=== PATIENT | female | born 1975 | race Caucasian/White ===

== ENCOUNTER 2017-04-12 09:06 | Inpatient (IN) | payer MEDICAID, OTHER ==
[2017-04-12] MEDS ORDERED: NS 1,000 ML IV ONE ×3 (09:54→20:39)
--- NOTE | 2017-04-12 09:58 | EDPHY ---
H & P Time Seen by Provider: 04/12/17 09:27 HPI/ROS: Chief complaint. Vomiting HPI. 41-year-old female insulin-dependent diabetic with nausea vomiting and burning epigastric pain for 4 days. She has had similar symptoms previously and has had previous admission for DKA. She has some periumbilical tenderness. No bowel movement for 4 days. No significant abdominal history though sensitive stomach. Blood sugar was 450 today. No chest discomfort or trouble breathing. No urinary symptoms other than decreased urination. No fever ROS Constitutional. Generalized weakness Eyes. no problems with vision ENT. no sore throat, no nasal drainage Cardiovascular. no chest pain Respiratory. no shortness of breath, no cough Abdominal. Abdominal pain with vomiting. No diarrhea. No bowel movement for 4 days . Decreased urination MS. no calf pain/swelling, no neck/back pain, no joint pain Skin. no rash Lymph. no swollen glands Neuro. no headache, no dizziness, no difficulty walking or with speech Past Medical/Surgical History: Insulin-dependent diabetes Social History: Single, nonsmoker, no alcohol Smoking Status: Current every day smoker Physical Exam: General Appearance: Alert well-developed female moderate distress vital signs significant for heart rate of approximately 135 Eyes: Pupils equal and round no pallor or injection. ENT, mucous membranes are dry Respiratory: There are no retractions, lungs are clear to auscultation. Cardiovascular: Regular rate and rhythm. Gastrointestinal: Abdomen is soft but diffusely tender. No masses. Normal bowel sounds Neurological: Awake and alert, sensory and motor exams grossly normal. Skin: Warm and dry, no rashes. Musculoskeletal: Neck is supple nontender. Extremities symmetrical, full range of motion. Psychiatric: Patient is oriented X 3, there is no agitation. Constitutional: Initial Vital Signs Temperature (C) 36.5 C 04/12/17 09:07 Heart Rate 132 H 04/12/17 09:07 Respiratory Rate 16 04/12/17 09:07 Blood Pressure 115/91 H 04/12/17 09:07 O2 Sat (%) 99 04/12/17 09:07 O2 Delivery Mode Room Air Allergies/Adverse Reactions: Penicillins Allergy (Intermediate, Verified 11/13/15 10:10) rashes/hives amoxicillin [Amoxicillin] Allergy (Unknown, Verified 01/12/11 23:00) Home Medications: Medication Instructions Recorded Insulin Lispro [Humalog] 0 unit SQ TIDMEAL 04/12/17 Medical Decision Making - Diagnostics EKG Interpretation: EKG interpreted by me shows sinus tachycardia with normal interval and axis. QRS is normal without significant ST elevation or depression. No arrhythmia. The heart rate is 104 Procedures: IV normal saline 2 L. We switched to IV saline with potassium. Potassium orally. 1 g magnesium sulfate IV. Zofran for vomiting. ED Course/Re-evaluation: 1:46 p.m. patient is stable. Repeat potassium shows a up to 2.9. We will give the patient further potassium so we can begin insulin therapy. We are trying to achieve a potassium level of greater than 3.0 Serial evaluations with the hydration patient is feeling better. I have consulted and discussed the case with Dr. Rasmussen, hospitalist, who agrees to the admission Differential Diagnosis: This appears to be DKA. The patient is significantly dehydrated. She has dry mucous membranes and tachycardia. She initially has a blood sugar only of about 280 but on recheck it is up around 450. She is acidotic. However her potassium is significantly low and does not allow us to initiate insulin therapy until we have elevated her potassium. She has been given supplemental potassium by mouth, IV as well as IV magnesium sulfate to try to increase potassium. The patient will be transferred to the ICU Critical Care Time: Critical care time exclusive procedures 45 minutes - Data Points Laboratory Results: Laboratory Results 04/12/17 09:32 04/12/17 09:32 04/12/17 04/12/17 04/12/17 11:20 11:15 10:57 WBC RBC Hgb POC Hgb 16.3 gm/dL gm/dL (12.6-16.3) Hct POC Hct 48 % H % (38-47) MCV MCH MCHC RDW Plt Count MPV Neut % (Auto) Lymph % (Auto) Sierra % (Auto) Eos % (Auto) Baso % (Auto) Nucleat RBC Rel Count Absolute Neuts (auto) Absolute Lymphs (auto) Absolute Monos (auto) Absolute Eos (auto) Absolute Basos (auto) Absolute Nucleated RBC Immature Gran % Immature Gran # VBG pH 7.23 L (7.31-7.42) POC Sodium 130 mEq/L L mEq/L (134-144) Sodium POC Potassium 2.4 mEq/L L* mEq/L (3.3-5.0) Potassium POC Chloride 94 mEq/L L mEq/L (97-110) Chloride Carbon Dioxide Anion Gap POC BUN 13 mg/dL mg/dL (7-23) BUN Creatinine POC Creatinine 0.8 mg/dL mg/dL (0.6-1.0) Estimated GFR Glucose POC Glucose 295 mg/dL H mg/dL (70-100) Calcium Phosphorus Lipase Beta-Hydroxybutyrate Beta HCG, Qual Urine Color PALE YELLOW Urine Appearance CLEAR Urine pH 5.0 (5.0-7.5) Ur Specific [place] 1.008 (1.002-1.030) Urine Protein 1+ H (NEGATIVE) Urine Ketones 2+ H (NEGATIVE) Urine Blood 3+ H (NEGATIVE) Urine Nitrate NEGATIVE (NEGATIVE) Urine Bilirubin NEGATIVE (NEGATIVE) Urine Urobilinogen NEGATIVE EU EU (0.2-1.0) Ur Leukocyte Esterase NEGATIVE (NEGATIVE) Urine RBC 1-3 /hpf /hpf (0-3) Urine WBC 1-3 /hpf /hpf (0-3) Ur Epithelial Cells TRACE /lpf /lpf (NONE-1+) Urine Bacteria TRACE /hpf H /hpf (NONE SEEN) Granular Casts 5-15 /lpf /lpf (0-1) Urine Mucus TRACE /lpf /lpf (NONE-1+) Urine Glucose 3+ H (NEGATIVE) 04/12/17 04/12/17 04/12/17 09:32 09:32 09:32 WBC 20.36 10^3/uL H 10^3/uL (3.80-9.50) RBC 5.34 10^6/uL H 10^6/uL (4.18-5.33) Hgb 16.7 g/dL H g/dL (12.6-16.3) POC Hgb Hct 46.2 % % (38.0-47.0) POC Hct MCV 86.5 fL fL (81.5-99.8) MCH 31.3 pg pg (27.9-34.1) MCHC 36.1 g/dL g/dL (32.4-36.7) RDW 12.2 % % (11.5-15.2) Plt Count 452 10^3/uL H 10^3/uL (150-400) MPV 9.5 fL fL (8.7-11.7) Neut % (Auto) 86.8 % H % (39.3-74.2) Lymph % (Auto) 4.7 % L % (15.0-45.0) Sierra % (Auto) 7.7 % % (4.5-13.0) Eos % (Auto) 0.0 % L % (0.6-7.6) Baso % (Auto) 0.2 % L % (0.3-1.7) Nucleat RBC Rel Count 0.0 % % (0.0-0.2) Absolute Neuts (auto) 17.67 10^3/uL H 10^3/uL (1.70-6.50) Absolute Lymphs (auto) 0.95 10^3/uL L 10^3/uL (1.00-3.00) Absolute Monos (auto) 1.57 10^3/uL H 10^3/uL (0.30-0.80) Absolute Eos (auto) 0.00 10^3/uL L 10^3/uL (0.03-0.40) Absolute Basos (auto) 0.04 10^3/uL 10^3/uL (0.02-0.10) Absolute Nucleated RBC 0.00 10^3/uL 10^3/uL (0-0.01) Immature Gran % 0.6 % % (0.0-1.1) Immature Gran # 0.13 10^3/uL H 10^3/uL (0.00-0.10) VBG pH POC Sodium Sodium 127 mEq/L L mEq/L (134-144) POC Potassium Potassium 2.6 mEq/L L* mEq/L (3.5-5.2) POC Chloride Chloride 86 mEq/L L mEq/L (97-110) Carbon Dioxide 13 mEq/l L mEq/l (22-31) Anion Gap 28 mEq/L H mEq/L (8-16) POC BUN BUN 15 mg/dL mg/dL (7-23) Creatinine 1.1 mg/dL H mg/dL (0.6-1.0) POC Creatinine Estimated GFR 55 Glucose 284 mg/dL H mg/dL (70-100) POC Glucose Calcium 10.7 mg/dL H mg/dL (8.5-10.4) Phosphorus 2.9 mg/dL mg/dL (2.5-4.5) Lipase 53.0 IU/L IU/L (23-300) Beta-Hydroxybutyrate 8.68 mmol/L H mmol/L (0.02-0.27) Beta HCG, Qual NEGATIVE Urine Color Urine Appearance Urine pH Ur Specific [place] Urine Protein Urine Ketones Urine Blood Urine Nitrate Urine Bilirubin Urine Urobilinogen Ur Leukocyte Esterase Urine RBC Urine WBC Ur Epithelial Cells Urine Bacteria Granular Casts Urine Mucus Urine Glucose Medications Given: Discontinued Medications Sodium Chloride (Ns) 1,000 mls @ 0 mls/hr IV ONCE ONE PRN Reason: Wide Open Stop: 04/12/17 09:55 Last Admin: 04/12/17 09:58 Dose: 1,000 mls Sodium Chloride (Ns) 1,000 mls @ 0 mls/hr IV ONCE ONE PRN Reason: Wide Open Stop: 04/12/17 09:55 Last Admin: 04/12/17 10:28 Dose: 1,000 mls Magnesium Sulfate/Dextrose (Magnesium Sulf 1 Gm (Premix)) 100 mls @ 100 mls/hr IV EDNOW ONE Stop: 04/12/17 12:15 Last Admin: 04/12/17 11:29 Dose: 100 mls Ondansetron HCl (Zofran) 4 mg IVP EDNOW ONE Stop: 04/12/17 10:28 Last Admin: 04/12/17 10:33 Dose: 4 mg Potassium Chloride (Klor-Con) 40 meq PO ONCE ONE Stop: 04/12/17 11:17 Last Admin: 04/12/17 11:22 Dose: 40 meq Point of Care Test Results: 04/12/17 11:15 POC Sodium 130 L POC Potassium 2.4 L* POC Chloride 94 L POC BUN 13 POC Creatinine 0.8 POC Glucose 295 H Departure - Departure Disposition: [facility] Inpatient Acute Clinical Impression: Diabetic ketoacidosis Qualifiers: Diabetes mellitus type: type 1 Diabetes mellitus complication detail: without coma Qualified Code(s): E10.10 - Type 1 diabetes mellitus with ketoacidosis without coma Condition: Critical
[2017-04-12 10:02] LABS: % IMMATURE GRANULYOCYTES 0.6 % (0.0-1.1); ABSOLUTE IMMATURE GRANULOCYTES 0.13 10^3/uL (0.00-0.10); ADD DIFF? NO; ADD MORPH? NO; ADD SCAN? NO; ATYPICAL LYMPHOCYTE FLAG 0 (0-99); FRAGMENT RBC FLAG 0 (0-99); HEMATOCRIT 46.2 % (38.0-47.0); HEMOGLOBIN 16.7 g/dL (12.6-16.3); LEFT SHIFT FLG 0 (0-99); LIPEMIA HEMOLYSIS FLAG 90 (0-99); MEAN CELL HEMOGLOBIN 31.3 pg (27.9-34.1); MEAN CELL HEMOGLOBIN CONCENTR. 36.1 g/dL (32.4-36.7); MEAN CELL VOLUME 86.5 fL (81.5-99.8); MEAN PLATELET VOLUME 9.5 fL (8.7-11.7); PLATELET CLUMPS FLAG 0 (0-99); PLATELET COUNT 452 10^3/uL (150-400); RED BLOOD CELL COUNT 5.34 10^6/uL (4.18-5.33); RED CELL DISTRIBUTION WIDTH 12.2 % (11.5-15.2)
[2017-04-12] MEDS ORDERED: ONDANSETRON 4 MG/2 ML VIAL IVP ONE (10:27)
[2017-04-12 10:29] LABS: ANION GAP 28 mEq/L (8-16); CALCIUM 10.7 mg/dL (8.5-10.4); CARBON DIOXIDE 13 mEq/l (22-31); CHLORIDE 86 mEq/L (97-110); CREATININE 1.1 mg/dL (0.6-1.0); GLOMERULAR FILTRATION RATE 55; GLUCOSE 284 mg/dL (70-100); SODIUM 127 mEq/L (134-144)
[2017-04-12 10:40] LABS: POTASSIUM 2.6 mEq/L (3.5-5.2)
[2017-04-12 11:08] LABS: LEUKOCYTE ESTERASE,URINE NEGATIVE (NEGATIVE); NITRITE,URINE NEGATIVE (NEGATIVE)
[2017-04-12] MEDS ORDERED: MAGNESIUM SULF 1 GM/DEXTROSE 100 ML IV ONE (11:16)
[2017-04-12] MEDS ORDERED: POTASSIUM CL 20 MEQ TAB PO ONE (11:16)
[2017-04-12 11:25] LABS: BACTERIA TRACE /hpf (NONE SEEN); MUCUS TRACE /lpf (NONE-1+)
[2017-04-12] MEDS ORDERED: POTASSIUM Cl (KCl) 20 MEQ in 1/2 NS 1,000 ML IV SCH (11:30)
[2017-04-12 11:33] LABS: COLOR PALE YELLOW
[2017-04-12 11:48] LABS: B-HYDROXYBUTYRATE 8.68 mmol/L (0.02-0.27)
--- NOTE | 2017-04-12 11:57 | CPEKG ---
Heart Rate: 104 RR Interval: 577 P-R Interval: 132 QRSD Interval: 84 QT Interval: 356 QTC Interval: 469 P Hastings: 80 QRS Hastings: 89 T Wave Hastings: -78 EKG Severity - OTHERWISE NORMAL ECG - EKG Impression: SINUS TACHYCARDIA Electronically Signed By: Heath Loyola 12-Apr-2017 15:50:30
[2017-04-12] MEDS ORDERED: PROTOCOL POTASSIUM 1 DOSE MISC PRN (13:02)
[2017-04-12] MEDS ORDERED: ONDANSETRON 4 MG/2 ML VIAL IVP PRN (13:03)
[2017-04-12] MEDS ORDERED: ONDANSETRON DISINTEGRATING 4 MG TAB PO PRN (13:03)
[2017-04-12] MEDS ORDERED: PROMETHAZINE HCL 25 MG/ML INJ IVP PRN (13:15)
[2017-04-12] MEDS ORDERED: PROTOCOL MAGNESIUM 1 DOSE IV PRN (13:19)
[2017-04-12] MEDS ORDERED: NS 1,000 ML IV SCH (13:45)
[2017-04-12] MEDS ORDERED: POTASSIUM Cl (KCl) 10 MEQ/100 ML BAG IV ONE (14:03)
[2017-04-12] MEDS: POTASSIUM Cl (KCl) 100 ML IV SCH ×6 (14:15→23:15)
[2017-04-12] MEDS ORDERED: ONDANSETRON 4 MG/2 ML VIAL ONE (14:19)
--- NOTE | 2017-04-12 14:25 | GHP ---
[f rep st] HISTORY AND PHYSICAL DATE OF ADMISSION: 04/12/2017 HISTORY OF PRESENT ILLNESS: The patient is a pleasant 41-year-old female with a history of type 1 d iabetes for about 13 years who has had a few admissions to this hospital for diabetic ketoacidosis, who presents with several days of nausea and vomiting. It sounds like a few days prior to admission she went out drinking alcohol and she was vomiting and continued to vomit. She has not had diarrh ea. She has not had hematemesis or coffee-ground emesis. She has had some subjective fevers and chills. She has not taken insulin this week I think secondar y to poor p.o. intake and perhaps because of a bit of knowledge deficit regarding the role of long-a cting insulin. It sounds like in the past she was not taking the long-acting insulin as well. She acknowledged not do this, that she does this mostly out of laziness. She has not had chest pain or shortness of breath. She is complaining of burning in her chest from frequent vomiting that leads to nausea and further vomiting. REVIEW OF SYSTEMS: A complete 10-point review of systems was conducted and negative except as noted in the history of present illness. PAST MEDICAL HISTORY: Type 1 diabetes since she was age 28. ALLERGIES: Penicillin and amoxicillin. HOME MEDICATIONS: Humalog insulin. SOCIAL HISTORY: She works in dry cleaning. She smokes a few cigarettes a day. Occasional alcohol. No drugs with a needle. FAMILY HISTORY: Notable for diabetes. PHYSICAL EXAMINATION: VITAL SIGNS: Presenting vitals today: Temperature 36.5, blood pressure 115/ 91, pulse 132, breathing 16 times a minute, 99% on room air. GENERAL: No acute distress although k ind of uncomfortable, retching a couple of times during our interview. HEENT: Sclerae anicteric. Oropharynx clear. Mucous membranes are dry. NECK: Supple without lymphadenopathy or JVD. LUNGS: Clear to auscultation bilaterally. HEART: Tachycardic, hyperdynamic. S1-S2 without murmurs. ABD OMEN: Soft, nontender, nondistended. LOWER EXTREMITIES: Without edema. Calves nontender. SKIN: Without rash. NEUROLOGIC: Nonfocal. LABORATORY: Sodium 127, potassium 2.6, chloride 86, bicarb 13, anion gap is elevated at 28, BUN 15, creatinine 1.1, glucose 284, calcium 10.7, lipase 53. Beta hydroxybutyrate is 8.68, beta HCG is ne gative. White count is 20.36, hematocrit 46, platelets 452,000. Her coags about 18 months ago were normal. She has a venous pH of 7.23. UA today shows trace bacteria, otherwise unremarkable. EKG interpreted by me shows sinus tach at 104 with normal axis and intervals. Diffuse T-wave invers ions. There are actually some U waves seen in the precordium. I discussed the case with Dr. Heath marin. ASSESSMENT AND PLAN: This is a 41-year-old female with type 1, on diabetes who presents with diabet ic ketoacidosis. 1. Diabetic ketoacidosis. I believe that the etiology of this is poor insulin in the setting of vo miting. We will start an insulin drip. Follow her chem 7 q.6. Will start long-acting insulin when the gap is closed. I suspect this will be later on this evening. 2. Hypokalemia. This is secondary to vomiting, poor p.o. intake and acidosis. We will replete thi s, put her on a calender let off operator. UAs were noted. 3. Nausea, vomiting. I suspect this is secondary to diabetic ketoacidosis. She is not having diar wm. She has a nontender abdominal exam. Her leukocytosis is noted. She has negative HCG and lip ase. We will follow. 4. Prophylaxis. Pharmacologic prophylaxis is indicated. Start low-molecular weight heparin. 5. Acidosis secondary to diabetic ketoacidosis. 6. Acute kidney injury. This is prerenal. We will follow. 7. Diabetes. Will check a hemoglobin A1c. I have encouraged the patient to use long-acting insuli n because she is at risk for the long-term side effects of poorly controlled diabetes. /[id number]/MODL
[2017-04-12] MEDS ORDERED: D5W 1,000 ML IV SCH (14:36)
[2017-04-12] MEDS ORDERED: D50W 25 GM/50 ML SYR IVP PRN (14:36)
[2017-04-12] MEDS: INSULIN REGULAR HUMAN 100 UNIT/ML IVP PRN (15:04)
[2017-04-12] MEDS: INSULIN REGULAR HUMAN 100 UNIT in NS 100 ML IV SCH (15:22)
[2017-04-12] MEDS ORDERED: POTASSIUM Cl (KCl) 100 ML IV SCH (15:30)
[2017-04-12] MEDS: LORazepam 2 MG/ML INJ IVP PRN (16:26)
[2017-04-12 18:48] LABS: CALCIUM 7.7 mg/dL (8.5-10.4); CHLORIDE 109 mEq/L (97-110); CREATININE 0.9 mg/dL (0.6-1.0); GLOMERULAR FILTRATION RATE > 60; SODIUM 138 mEq/L (134-144); SPECIMEN HEMOLYSIS 143
[2017-04-12 18:59] LABS: CARBON DIOXIDE < 5 mEq/l (22-31)
[2017-04-12 19:00] LABS: GLUCOSE 501 mg/dL (70-100)
[2017-04-12 19:53] LABS: ANION GAP 18 mEq/L (8-16); CALCIUM 8.4 mg/dL (8.5-10.4); CARBON DIOXIDE 11 mEq/l (22-31); CHLORIDE 101 mEq/L (97-110); CREATININE 0.9 mg/dL (0.6-1.0); GLOMERULAR FILTRATION RATE > 60; GLUCOSE 185 mg/dL (70-100); SODIUM 130 mEq/L (134-144)
[2017-04-12 20:27] LABS: POTASSIUM 2.6 mEq/L (3.5-5.2)
[2017-04-12] MEDS ORDERED: POTASSIUM Cl (KCl) 50 ML IV SCH (20:32)
[2017-04-12] MEDS ORDERED: D5W NS W/ 20 KCl/L 1,000 ML IV SCH (20:45)
[2017-04-12] MEDS ORDERED: NS W/ 20 KCl/L 1,000 ML IV SCH (21:00)
--- NOTE | 2017-04-12 21:08 | HOSPPROG ---
Hospitalist Progress Note Assessment/Plan: Follow up care. Pt admitted this afternoon with DKA. 15:45 labs are unreliable. Machine malfunctioned and specimen was hemolyzed. Repeat labs this evening show AG improving, CO2 remains low. Per RN protocol, pt has been receiving D5 at 100/hr for past several hours rather than the NS at 200 / hr as previously ordered. Pt is still tachycardic and dry, needs more volume. NS bolus now. K still low at 2.6 on insulin drip. Hold insulin drip, replete K, then resume insulin drip once K >3. Na still low at 130 (corrects to 131). Fluids changed to NS with 20 KCl at 200/hr. F/U potassium at 2300. Resume dextrose when back on insulin drip and BG <200. Likely change to D5 1/2 NS with 20 K at that time if sodium normalized. Objective: Vital Signs Temp Pulse Resp BP Pulse Ox 36.8 C 109 H 18 127/74 H 99 04/12/17 12:00 04/12/17 19:00 04/12/17 19:00 04/12/17 19:00 04/12/17 19:00 Laboratory Results 04/12/17 19:26 04/11/17 04/12/17 04/13/17 05:59 05:59 05:59 Intake Total 9350 Output Total 400 Balance 8950 ICD10 Worksheet Patient Problems: Problems Problem Status Onset Diabetic ketoacidosis Acute Dehydration Acute Diabetic ketoacidosis Acute Hyperglycemia Acute Hyperglycemia due to type 1 diabetes mellitus Acute Hypochloremia Acute Hyponatremia Acute
[2017-04-12 23:35] LABS: POTASSIUM 4.2 mEq/L (3.5-5.2)
[2017-04-13] MEDS: INSULIN REGULAR HUMAN 100 UNIT/ML IVP PRN ×2 (00:35→02:24)
[2017-04-13] MEDS: LORazepam 2 MG/ML INJ IVP PRN (00:35)
[2017-04-13] MEDS: POTASSIUM Cl (KCl) 100 ML IV SCH ×5 (00:36→15:13)
[2017-04-13 01:33] LABS: ANION GAP 15 mEq/L (8-16); CALCIUM 8.2 mg/dL (8.5-10.4); CHLORIDE 103 mEq/L (97-110); CREATININE 0.8 mg/dL (0.6-1.0); GLOMERULAR FILTRATION RATE > 60; GLUCOSE 261 mg/dL (70-100); POTASSIUM 4.2 mEq/L (3.5-5.2); SODIUM 127 mEq/L (134-144)
[2017-04-13 01:49] LABS: CARBON DIOXIDE 9 mEq/l (22-31)
[2017-04-13] MEDS ORDERED: D5W 1/2 NS 1,000 ML IV SCH (05:00)
[2017-04-13] MEDS: INSULIN REGULAR HUMAN 100 UNIT in NS 100 ML IV SCH (05:01)
[2017-04-13 06:06] LABS: % IMMATURE GRANULYOCYTES 0.6 % (0.0-1.1); ABSOLUTE IMMATURE GRANULOCYTES 0.11 10^3/uL (0.00-0.10); ADD DIFF? NO; ADD MORPH? NO; ADD SCAN? NO; ATYPICAL LYMPHOCYTE FLAG 0 (0-99); FRAGMENT RBC FLAG 0 (0-99); HEMATOCRIT 35.6 % (38.0-47.0); HEMOGLOBIN 12.8 g/dL (12.6-16.3); LEFT SHIFT FLG 0 (0-99); LIPEMIA HEMOLYSIS FLAG 90 (0-99); MEAN CELL HEMOGLOBIN 31.5 pg (27.9-34.1); MEAN CELL VOLUME 87.7 fL (81.5-99.8); MEAN PLATELET VOLUME 9.1 fL (8.7-11.7); PLATELET CLUMPS FLAG 0 (0-99); PLATELET COUNT 260 10^3/uL (150-400); RED BLOOD CELL COUNT 4.06 10^6/uL (4.18-5.33); RED CELL DISTRIBUTION WIDTH 12.4 % (11.5-15.2)
[2017-04-13 06:51] LABS: ANION GAP 9 mEq/L (8-16); CALCIUM 8.3 mg/dL (8.5-10.4); CARBON DIOXIDE 14 mEq/l (22-31); CHLORIDE 109 mEq/L (97-110); CREATININE 0.7 mg/dL (0.6-1.0); GLOMERULAR FILTRATION RATE > 60; GLUCOSE 73 mg/dL (70-100); MAGNESIUM 2.1 mg/dL (1.6-2.3); POTASSIUM 3.2 mEq/L (3.5-5.2); SODIUM 132 mEq/L (134-144)
[2017-04-13 07:19] LABS: INR 1.16 (0.83-1.16); PROTIME(PATIENT) 14.8 SEC (12.0-15.0)
--- NOTE | 2017-04-13 09:36 | HOSPPROG ---
Hospitalist Progress Note Assessment/Plan: 41 yo F w dm 1 here w dka 2/2 insulin non compliance DKA: insulin drip turned off gap almost certainly increasing 1. restart insulin gtt 2. stat chem 7 3. continue insulin gttt until anion gap closed do not stop insulin gtt for hypoglycemia (give d50) or hypokalemia (give K ) as this will cause anion gap to open again dm1: suspect poorly controlled a1c pending has prescription coverage I have stressed importance of always taking long acting insulin tachycardia: resolved 2/2 hypovolemia proph: lmwh dispo: inpt risk: high Subjective: difficulty w insulin gtt overnight. turned off for unclear reasons. anion gap still elevated, bicarb still low Objective: Vital Signs Temp Pulse Resp BP Pulse Ox 37.2 C 92 17 116/65 99 04/13/17 04:00 04/13/17 07:00 04/13/17 06:00 04/13/17 07:00 04/13/17 06:00 Laboratory Results 04/13/17 05:40 04/13/17 05:40 04/12/17 04/13/17 04/14/17 05:59 05:59 05:59 Intake Total 9850 Output Total 3250 Balance 6600 PT 14.8 SEC (12.0-15.0) 04/13/17 05:40 INR 1.16 (0.83-1.16) 04/13/17 05:40 - Physical Exam Constitutional: no apparent distress, appears nourished, other (looks better) Eyes: PERRL, anicteric sclera Ears, Nose, Mouth, Throat: moist mucous membranes, hearing normal Cardiovascular: regular rate and rhythym, no murmur, rub, or gallop, No tachycardia Respiratory: no respiratory distress, no rales or rhonchi Gastrointestinal: normoactive bowel sounds, soft, non-tender abdomen, No guarding, No rebound Genitourinary: no bladder fullness, No petit in urethra Skin: warm, normal color Musculoskeletal: full muscle strength, no muscle tenderness Neurologic: AAOx3, sensation intact bilaterally Psychiatric: interacting appropriately, not anxious Lymph, Heme, Immunologic: no cervical LAD ICD10 Worksheet Patient Problems: Problems Problem Status Onset Diabetic ketoacidosis Acute Dehydration Acute Diabetic ketoacidosis Acute Hyperglycemia Acute Hyperglycemia due to type 1 diabetes mellitus Acute Hypochloremia Acute Hyponatremia Acute
[2017-04-13 10:25] LABS: ANION GAP 9 mEq/L (8-16); CALCIUM 6.3 mg/dL (8.5-10.4); CARBON DIOXIDE 11 mEq/l (22-31); CHLORIDE 113 mEq/L (97-110); CREATININE 0.6 mg/dL (0.6-1.0); GLOMERULAR FILTRATION RATE > 60; GLUCOSE 232 mg/dL (70-100); SODIUM 133 mEq/L (134-144)
[2017-04-13 10:36] LABS: POTASSIUM 2.7 mEq/L (3.5-5.2)
[2017-04-13] MEDS: ENOXAPARIN 40 MG/0.4 ML SYR SC SCH (11:08)
[2017-04-13] MEDS: ACETAMINOPHEN 325 MG TAB PO PRN (13:55)
[2017-04-13 16:09] LABS: ANION GAP 4 mEq/L (8-16); CARBON DIOXIDE 17 mEq/l (22-31); CHLORIDE 107 mEq/L (97-110); CREATININE 0.6 mg/dL (0.6-1.0); GLOMERULAR FILTRATION RATE > 60; GLUCOSE 110 mg/dL (70-100); SODIUM 128 mEq/L (134-144)
[2017-04-13] MEDS ORDERED: POTASSIUM CL 10 MEQ TAB PO ONE (16:45)
[2017-04-13] MEDS ORDERED: INSULIN GLARGINE 100 UNITS/ML SYRINGE SC ONE (17:00)
[2017-04-13] MEDS ORDERED: INSULIN LISPRO 100 UNIT/ML SC ONE (23:11)
[2017-04-14 02:15] LABS: HEMOGLOBIN A1C 10.1 % (4.0-6.0)
[2017-04-14 05:28] LABS: % IMMATURE GRANULYOCYTES 0.5 % (0.0-1.1); ABSOLUTE IMMATURE GRANULOCYTES 0.04 10^3/uL (0.00-0.10); ADD DIFF? NO; ADD MORPH? NO; ADD SCAN? NO; ATYPICAL LYMPHOCYTE FLAG 0 (0-99); FRAGMENT RBC FLAG 0 (0-99); HEMATOCRIT 38.3 % (38.0-47.0); HEMOGLOBIN 13.8 g/dL (12.6-16.3); LEFT SHIFT FLG 0 (0-99); LIPEMIA HEMOLYSIS FLAG 90 (0-99); MEAN CELL HEMOGLOBIN 31.3 pg (27.9-34.1); MEAN CELL VOLUME 86.8 fL (81.5-99.8); MEAN PLATELET VOLUME 9.2 fL (8.7-11.7); PLATELET CLUMPS FLAG 20 (0-99); PLATELET COUNT 209 10^3/uL (150-400); RED BLOOD CELL COUNT 4.41 10^6/uL (4.18-5.33); RED CELL DISTRIBUTION WIDTH 12.4 % (11.5-15.2)
[2017-04-14] MEDS ORDERED: POTASSIUM CL 10 MEQ TAB PO ONE (08:17)
[2017-04-14] MEDS ORDERED: POTASSIUM CL 10 MEQ TAB ONE (09:27)
[2017-04-14 10:04] LABS: ANION GAP 11 mEq/L (8-16); CALCIUM 8.2 mg/dL (8.5-10.4); CARBON DIOXIDE 16 mEq/l (22-31); CHLORIDE 104 mEq/L (97-110); CREATININE 0.6 mg/dL (0.6-1.0); GLOMERULAR FILTRATION RATE > 60; GLUCOSE 237 mg/dL (70-100); POTASSIUM 3.3 mEq/L (3.5-5.2); SODIUM 131 mEq/L (134-144)
[2017-04-14 10:58] LABS: MAGNESIUM 1.8 mg/dL (1.6-2.3); POTASSIUM 3.3 mEq/L (3.5-5.2)
--- NOTE | 2017-04-14 11:29 | HOSPPROG ---
Hospitalist Progress Note Assessment/Plan: 41 yo F w dm 1 here w dka 2/2 insulin non compliance DKA: resolved insulin dip off long acting insulin given last evening residual, non anion gap acidosis noted- suspect saline resuscitation not tachypneic follow dm1: suspect poorly controlled a1c 10.1 indicating poor but not disastrous control has prescription coverage I have stressed importance of always taking long acting insulin constipation: add miralax vomting: add pi for gerd like sx chec lft's tachycardia: resolved 2/2 hypovolemia proph: lmwh dispo: to floor risk: high Subjective: gap closed. started on lantus last barbie. still nauseated Objective: Vital Signs Temp Pulse Resp BP Pulse Ox 37.2 C 103 H 17 129/78 H 95 04/14/17 04:00 04/14/17 04:00 04/14/17 04:00 04/14/17 04:00 04/14/17 04:00 Laboratory Results 04/14/17 05:20 04/14/17 05:20 04/13/17 04/14/17 04/15/17 05:59 05:59 05:59 Intake Total 3733 Output Total 700 Balance 3033 PT 14.8 SEC (12.0-15.0) 04/13/17 05:40 INR 1.16 (0.83-1.16) 04/13/17 05:40 - Physical Exam Constitutional: no apparent distress, appears nourished Eyes: PERRL, anicteric sclera Ears, Nose, Mouth, Throat: moist mucous membranes, hearing normal Cardiovascular: regular rate and rhythym, no murmur, rub, or gallop Respiratory: no respiratory distress, no rales or rhonchi Gastrointestinal: normoactive bowel sounds, soft, non-tender abdomen Genitourinary: no bladder fullness, No petit in urethra Skin: warm, normal color Musculoskeletal: full muscle strength Neurologic: AAOx3 ICD10 Worksheet Patient Problems: Problems Problem Status Onset Diabetic ketoacidosis Acute Dehydration Acute Diabetic ketoacidosis Acute Hyperglycemia Acute Hyperglycemia due to type 1 diabetes mellitus Acute Hypochloremia Acute Hyponatremia Acute
[2017-04-14] MEDS ORDERED: MAGNESIUM SULF 1 GM/DEXTROSE 100 ML IV ONE (11:39)
[2017-04-14] MEDS: INSULIN LISPRO 100 UNIT/ML SC SCH ×3 (11:44→17:14)
[2017-04-14] MEDS: ENOXAPARIN 40 MG/0.4 ML SYR SC SCH (11:44)
[2017-04-14] MEDS: POLYETHYLENE GLYCOL 3350 17 GM PKT PO SCH (11:53)
[2017-04-14] MEDS: PANTOPRAZOLE SODIUM 40 MG TAB PO SCH (11:53)
[2017-04-14] MEDS: INSULIN GLARGINE 100 UNITS/ML SYRINGE SC SCH (12:26)
[2017-04-14 12:48] LABS: ALANINE AMINOTRANSFERASE 39 IU/L (9-52); ALBUMIN 2.9 g/dL (3.5-5.0); ALKALINE PHOSPHATASE 101 IU/L (38-126); ASPARTATE AMINOTRANSFERASE 29 IU/L (14-46); BILIRUBIN,TOTAL 0.7 mg/dL (0.1-1.4); BILIRUBIN-CONJUGATED 0.5 mg/dL (0.0-0.5); BILIRUBIN-UNCONJUGATED 0.2 mg/dL (0.0-1.1); POTASSIUM 3.3 mEq/L (3.5-5.2); TOTAL PROTEIN 5.4 g/dL (6.3-8.2)
[2017-04-14] MEDS: guaiFENesin/CODEINE PHOS 10 ML UDCUP PO PRN ×2 (16:19→22:18)
[2017-04-14] MEDS: CEPACOL LOZENGE PO PRN ×3 (16:19→22:18)
[2017-04-15] MEDS: ACETAMINOPHEN 325 MG TAB PO PRN ×2 (02:04→08:27)
[2017-04-15 06:32] LABS: ANION GAP 6 mEq/L (8-16); CALCIUM 8.2 mg/dL (8.5-10.4); CARBON DIOXIDE 26 mEq/l (22-31); CHLORIDE 102 mEq/L (97-110); CREATININE 0.6 mg/dL (0.6-1.0); GLOMERULAR FILTRATION RATE > 60; GLUCOSE 166 mg/dL (70-100); SODIUM 134 mEq/L (134-144)
[2017-04-15] MEDS: INSULIN LISPRO 100 UNIT/ML SC SCH (08:10)
[2017-04-15] MEDS: ENOXAPARIN 40 MG/0.4 ML SYR SC SCH (08:11)
[2017-04-15] MEDS: INSULIN GLARGINE 100 UNITS/ML SYRINGE SC SCH (08:11)
[2017-04-15] MEDS: PANTOPRAZOLE SODIUM 40 MG TAB PO SCH (08:11)
[2017-04-15] MEDS: POLYETHYLENE GLYCOL 3350 17 GM PKT PO SCH (08:12)
[2017-04-15] MEDS: CEPACOL LOZENGE PO PRN (08:13)
[2017-04-15 08:20] VITALS: BP 136/89; PULSE 102; RESP 18; TEMP 97.4; O2SAT 99
[2017-04-15] MEDS ORDERED: POTASSIUM CL 20 MEQ TAB PO ONE (08:36)
--- NOTE | 2017-04-15 10:01 | GDS ---
[f rep st] DISCHARGE SUMMARY DISCHARGE DIAGNOSES: 1. Diabetic ketoacidosis. 2. Diabetes mellitus type 1. CONSULTANTS: None. History of details, please see the history and physical dated April 12, 2017. In brief, the patient i s a 41-year-old female with a history of type 1 diabetes, who has not been totally adherent to her i nsulin regimen, presented to the emergency department with several days of nausea and vomiting. She has been drinking quite a bit of alcohol for a few days prior to arrival, and this may have precipi tated her symptoms. She was found to be in DKA and admitted to the hospital for further management. HOSPITAL COURSE: Patient was admitted to the ICU, I had suspected her DKA was precipitated by nonad herence to her insulin, especially her basal insulin, in the setting of alcohol induced vomiting. S he was aggressively resuscitated with normal saline and started on an insulin drip with frequent irish mistries. She required aggressive electrolyte replacement, particularly potassium. Her leukocytosi s was likely vomiting induced and resolved. She has a negative HCG and a negative lipase. Her anio n gap closed, she was transitioned to subcutaneous insulin, and is stable at the time of discharge. Of note, her hemoglobin A1c this admission was 10.1. DISPOSITION: Patient is discharged home in stable condition. FOLLOWUP: Patient is to follow up with the [facility] this week for ongoing diabetes and insuli n management. DISCHARGE MEDICATIONS: Please see [email or web address] for a complete updated outpatient medication list. Candy ent will continue her outpatient insulin doses of Levemir 15 units at bedtime, and will continue on her usual carb counting and sliding scale Humalog insulin. It was discussed with her the importance of continuing her basal insulin in the setting of type 1 diabetes. She is also prescribed Protonix 40 mg p.o. daily #30, and no refills. /[id number]/MODL
== END 2017-04-15 10:14 | disposition home or self-care (01) | DRG 638 ==
LOC: INTOOBSV 11:45 → F2N 14:16 → OBSVTOIN 04-13 09:26 → F3E 04-14 15:04
PROVIDERS: ADMIT Internal Medicine; ATTEND Internal Medicine
DX: E10.10 Type 1 diabetes mellitus with ketoacidosis without coma (principal); T38.3X6A Underdosing of insulin and oral hypoglycemic [antidiabetic] drugs, initial encounter; Z91.128 Patient's intentional underdosing of medication regimen for other reason; N17.9 Acute kidney failure, unspecified; E87.6 Hypokalemia; Z79.4 Long term (current) use of insulin
CPT/HCPCS: 82947-QW; G0378; J1650; J1815; J2060; J2405; J3475